=== PATIENT | male | born 1955 | race Caucasian/White ===

== ENCOUNTER 2017-11-24 08:33 | Outpatient (CLI) | payer MEDICARE | END 2017-11-24 08:34 | disposition home or self-care (01) | LOC: BICMRI 08:33 | PROVIDERS: ATTEND Physician Assistant Surgical | DX: M47.26 Other spondylosis with radiculopathy, lumbar region (principal); M51.16 Intervertebral disc disorders with radiculopathy, lumbar region; M48.061 Spinal stenosis, lumbar region without neurogenic claudication; M99.83 Other biomechanical lesions of lumbar region | CPT/HCPCS: 72110; 72148 ==

== ENCOUNTER 2017-12-20 11:32 | Outpatient (CLI) | payer MEDICARE ==
--- NOTE | 2017-12-20 12:06 | RAD ---
TWO VIEWS OF THE CHEST: COMPARISON: None. HISTORY: Preoperative radiograph. FINDINGS: Two views of the chest show a normal-size cardiomediastinal silhouette with atherosclerotic calcifica tions in the aorta. There is no evidence of consolidation, mass, or pleural effusion. Degenerative changes are seen in the spine. IMPRESSION: 1. No evidence of acute cardiopulmonary disease. 2. Atherosclerotic disease. POS: [facility]
== END 2017-12-20 11:33 | disposition home or self-care (01) ==
LOC: RAD-FRANK 11:32
PROVIDERS: ATTEND Internal Medicine
DX: Z01.818 Encounter for other preprocedural examination (principal); I70.0 Atherosclerosis of aorta
CPT/HCPCS: 71046

== ENCOUNTER 2018-12-19 11:28 | Inpatient (IN) | payer MEDICAID, MEDICARE ==
[2018-12-19 11:43] LABS: #Basophils 0.1 thou/uL (0.0-0.2); #Eosinphils 0.1 thou/uL (0.0-0.7); #Lymphocytes 1.5 thou/uL (1.20-3.40); #Monocytes 0.8 thou/uL (0.11-0.59); #Neutrophils 7.9 thou/uL (1.40-6.50); %Basophils 0.5 % (0.0-1.0); %Eosinophils 0.7 % (0.0-10.0); %Lymphocytes 14.4 % (21.0-51.0); %Monocytes 7.4 % (0.0-10.0); Hemoglobin 13.2 g/dL (14.0-18.0); Mean Corpuscular HGB CONC 33.7 g/dL (32.0-36.0); Mean Corpuscular Hemoglobin 28.9 pg (27.0-31.0); Mean Corpuscular Volume 85.6 fL (78.0-98.0); Platelet Count 278 thou/uL (130-400); RBC Distribution Width 13.2 % (11.5-14.5); Red Blood Cell (RBC) Count 4.57 mill/uL (4.70-6.10); White Blood Cell (WBC) Count 10.2 thou/uL (4.8-10.8)
--- NOTE | 2018-12-19 11:52 | CT ---
CT BRAIN WITHOUT CONTRAST: Date: 12/19/18 HISTORY: 62-year-old male with left-sided weakness and facial droop. FINDINGS: Comparison made with exam of 11/16/12. Changes of cortical atrophy, chronic small vessel ischemic disease, and old infarction in the left po sterior parietal lobe are again seen. There is loss of kim-white matter differentiation in the left temporal lobe. No hemorrhage, midline shift, or abnormal extra-axial fluid collections are seen. The ventricular size is appropriate and the basilar cisterns are patent. The bony calvarium is intact. IMPRESSION: Findings suspicious for acute nonhemorrhagic left temporal lobe infarction. Discussed over the telephone with ER physician, Dr. Slaughter, at 1136 hours. CODE CR. POS: [facility]
[2018-12-19 11:53] LABS: INR-International Normal Ratio 1.1; PTT 28.2 SEC (22.9-36.1); Prothrombin Time 14.3 SEC (12.0-14.7)
[2018-12-19 11:57] LABS: ALT (SGPT) 14 U/L (8-55); AST (SGOT) 12 U/L (5-34); Alkaline Phosphatase 90 U/L (40-150); Anion Gap 13 mmol/L (10-20); BUN (Urea Nitrogen) 32 mg/dL (8.4-25.7); Bilirubin, Total 1.1 mg/dL (0.2-1.2); CK (CPK) 37 U/L (30-200); Calc. Creatinine Clearance 0 mL/min (70-130); Calcium 9.1 mg/dL (7.8-10.44); Carbon Dioxide 28 mmol/L (23-31); Chloride 98 mmol/L (98-107); Estimated GFR-MDRD 30; Globulin 2.5 g/dL (2.4-3.5); Glucose 89 mg/dL (80-115); Potassium 3.9 mmol/L (3.5-5.1); Protein, Total 6.5 g/dL (5.8-8.1); Sodium 135 mmol/L (136-145)
--- NOTE | 2018-12-19 12:13 | CT ---
CT angiogram of head CT angiogram of the neck: CT perfusion of the brain TECHNIQUE: Axial CT imaging at 1.25 mm intervals from the vertex through the lung apices with IV cont rast using CT angiogram protocol. CT perfusion maps were also obtained following the injection of intravenous contrast media HISTORY: Left-sided weakness, facial droop FINDINGS: The imaged lung apices are unremarkable. There is atherosclerotic calcification of the aortic arch. The origin of the innominate artery, left common carotid artery, and left subclavian artery are paten t. There is partially calcified plaque at the origin of the innominate artery, left common carotid artery, left subclavian artery. There is mild stenosis at the origin of the left common carotid arter y. Mild stenosis is suspected at the origin of bilateral vertebral arteries. The right and left vertebral arteries are patent with no evidence for high-grade stenosis of either v ertebral artery. There is an area of moderate stenosis involving the left vertebral artery on axial image 139. An additional area of stenosis of the left vertebral artery noted on image 125. On the basis of NASCET criteria there is no hemodynamically significant stenosis involving the left c ommon carotid artery. On the basis of partially calcified plaque there is stenosis at the origin of the left internal carotid artery estimated in 50% range. On the basis of partially calcified plaque there is stenosis at the origin of the right internal pimentel tid artery. The degree of atherosclerotic calcification limits detailed assessment for the degree of stenosis but this is felt to be a high-grade stenosis of at least 80-90%. The internal carotid art karl on the right distal to this focal area of proximal stenosis is slightly hypoplastic. The retroantral fat and the parapharyngeal fat appears clear bilaterally. The parotid and submandibul ar glands appear unremarkable. There is a hypodense nodule within the right lobe of the thyroid gland measuring approximately 6 mm. No lymphadenopathy is seen within the neck. Limited assessment of the aerodigestive tract demonstrate s no concerning lesion. There is a focal area of prominent/moderate stenosis involving the midportion of the basilar artery o n axial image 2:15. The posterior cerebral artery demonstrates a severe area of proximal stenosis on the left, best seen on axial image 227. There is atherosclerotic calcification of bilateral cavernous carotid arteries. The M1 segments appear patent bilaterally. There is a paucity of arterial branches within the sylvian fissure on the left. It is difficult to pinpoint a focal arterial clot but there is a diminutive M2 branch on the left, best seen on axial image 229, suspicious for a probable proximal M2 clot on th e left. The bifurcation of the internal carotid artery appears unremarkable bilaterally. The A1 segment appea rs hypoplastic on the right. Distal SEGUN branches appear intact. The MCA bifurcation and distal MCA branches on the right appear grossly unremarkable. CT perfusion maps: CT perfusion maps demonstrate an area of completed infarction involving the anteri or inferior lateral aspect of the left temporal lobe. Posterior to this is a area of temporal lobe ischemia as there is increased mean transit time in this region but blood volume is normal. This is c onsistent with a significant penumbra in the area of left MCA ischemia. Review of the osseous structures demonstrate no acute findings IMPRESSION: Completed infarction in the left temporal lobe with an adjacent area of the left temporal lobe ischemia (significant penumbra present). There is a probable area of intra-arterial thrombus involving a proximal left M2 branch accounting for these perfusion abnormalities. Evidence of cytotox ic edema is seen within the left temporal lobe consistent with the area of ischemia/infarct mentioned above. There is hemodynamically significant stenosis at the origin of the right internal carotid artery, dif ficult to quantify secondary to calcification. This area of stenosis at the proximal right ICA appears critical. Results were discussed with Dr. Slaughter at 12:05 PM 12/19/2018.
[2018-12-19] MEDS ORDERED: Morphine 4 MG/ML VIAL ONE (15:50)
[2018-12-19] MEDS ORDERED: Sodium Chloride 0.9% 1,000 ML IV SCH (16:30)
[2018-12-19] MEDS ORDERED: Labetalol HCl 100 MG/20 ML VIAL SLOW IVP PRN (17:16)
[2018-12-19] MEDS ORDERED: hydrALAZINE 20 MG/ML VIAL SLOW IVP PRN (17:16)
[2018-12-19] MEDS ORDERED: Diazepam 5 MG TAB PO PRN (17:22)
[2018-12-19] MEDS ORDERED: Diazepam 5 MG TAB PO SCH (17:30)
[2018-12-19] MEDS ORDERED: Thiamine HCl 200 MG/2 ML VIAL IM SCH (17:30)
--- NOTE | 2018-12-19 18:07 | CON ---
DATE OF CONSULTATION: 12/19/2018 SERVICE: Pulmonary Medicine. REASON FOR CONSULT: ICU patient. HISTORY OF PRESENT ILLNESS: The patient is a 62-year-old white male, who had an abrupt onset of inability to speak correctly. He was able to get some words out , but they were completely nonsensical and put together in a way that he was not able to convey any thoughts. He was last seen early this morning. He presented to the emergency department, where a CT of the head suggested a large left temporal acute stroke. He underwent a CTA of the head and neck, and also SPECT studies. This confirmed a flow void in the left temporal region. He got a dose of tPA. Interventional Radiology suggested no additional interventions were required. He actually got a lot of his words back. That being said, he is still kind of confused about who he is, what the situation is, and where he is. He does speak appropriately now and we can understand him. His family is suggesting that in no way is he back to his usual state. PAST MEDICAL HISTORY: 1. Hypertension. 2. History of CVA. 3. Benign prostatic hyperplasia. 4. Gastroesophageal reflux disease. 5. Major depressive disorder. 6. COPD. 7. Gout. 8. Osteoporosis. PAST SURGICAL HISTORY: 1. Left hip replacement x2. 2. Right knee replacement. SOCIAL HISTORY: He lives alone. He was recently visiting with a friend, who left yesterday. He has a greater than 60 pack-year history of smoking. He previously drank 5 alcoholic drinks on a daily basis. He also denied any illicit drugs. 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 FAMILY HISTORY: Noncontributory. ALLERGIES: PENICILLIN, CODEINE. MEDICATIONS: List of his inpatient medications was reviewed. No specific updates were made. REVEIW OF SYSTEMS: General, Head, Ears, Eyes, Nose, Throat, Cardiovascular, Respiratory, GI, , Musculoskeletal, Neurologic, and Skin are negative except as mentioned in the HPI. PHYSICAL EXAMINATION: VITAL SIGNS: Afebrile, pulse 70, blood pressure 160/85, respirations 19, saturation 100% on room air. GENERAL: The patient is awake and alert, in no apparent distress. LUNGS: Very good air entry. No prolonged expiratory phase or wheezing present. HEART: Normal rate and regular. ABDOMEN: Soft, nontender, nondistended. Bowel sounds are positive. MUSCULOSKELETAL: No cyanosis or clubbing. No pitting in the bilateral lower extremities. NEUROLOGIC: Truthfully, he is essentially nonfocal. He demonstrates good strength, which is symmetric. Cranial nerves 2 through 12 are intact. Cerebellar function seems to be intact as well. LABORATORY DATA: WBC 10.2, hemoglobin 13.2, platelets 278,000. INR 1.1. Creatinine 2.22. Basic metabolic profile and liver function studies are otherwise unremarkable. Troponin is below the assay limit, glucose is normal. IMAGING STUDIES: 1. CTA of the head and neck demonstrates abnormal perfusion in left temporal region. He also has significant stenosis of the right ICA. 2. CT of the brain demonstrates an area of the left temporal region with ischemia. ASSESSMENT: 1. Acute cerebrovascular accident of the left temporal region, status post tissue plasminogen activator. 2. Carotid arterial disease of the right internal carotid artery. 3. Chronic obstructive pulmonary disease. 4. Hypertension. 5. Tobacco and alcohol abuse. DISCUSSION AND PLAN: We will watch the patient's ASE scores. If he starts having withdrawal features, some Ativan will be provided. We will watch him in the ICU very closely over the next 24 hours to make certain he does not have any neurologic decompensation. If he does, stat CT of the brain will be performed. Repeat CT of the head will be performed tomorrow morning. Pulmonary/Critical Care will continue to follow along in this location. 70 minutes have been devoted to this patient in various activities. I personally reviewed all imaging studies and laboratory data noted within this document. For fifty percent of this time, I was interacting with the patient at the bedside or coordinating care with the care team. For the remainder of the time I was immediately available to the patient in the hospital unit. Job ID: [id number] [facility]
[2018-12-19 18:44] LABS: Amphetamine Not Detected (NotDetected); Barbiturates Screen Not Detected (NotDetected); Benzodiazepine Screen Detected (NotDetected); Cocaine Metabolite Screen Not Detected (NotDetected); Medtox Control Line Valid? VALID (VALID); Medtox Reader # READER 1; Methadone Not Detected (NotDetected); Methamphetamine Not Detected (NotDetected); Opiate Screen Detected (NotDetected); Oxycodone Screen Not Detected (NotDetected); Phencyclidine (PCP) Not Detected (NotDetected); THC/Cannabinoid Screen Not Detected (NotDetected); Tricyclic Screen Not Detected (NotDetected)
[2018-12-19] MEDS ORDERED: Dextrose 5 %-0.45 % NaCl 1,000 ML IV SCH (19:15)
[2018-12-19] MEDS: Losartan/Hydrochlorothiazide 100 mg/25 mg Tablet PO SCH (20:29)
[2018-12-19] MEDS: Gabapentin 300 MG CAP PO SCH (20:30)
[2018-12-19] MEDS: Morphine 2 MG/ML SYRINGE SLOW IVP PRN (20:30)
--- NOTE | 2018-12-19 21:34 | CON ---
DATE OF CONSULTATION: 12/19/2018 CONSULTING PHYSICIAN: Monroe Snider MD IMPRESSION: 1. Acute left temporal stroke with receptive aphasia. 2. Extensive chronic white matter disease and prior silent infarction in the left posterior circulation area. PLAN: 1. Repeat CT tomorrow. 2. Start antiplatelet therapy and a statin after the 24-hour window has passed. HISTORY OF PRESENT ILLNESS: Mr. Augustine is a 62-year-old man with a past history of hypertension. He presented with change in mental status and that he seemed to be talking inappropriately. He came in and had a CT of the brain, which showed some acute area of hypointensity in the left temporal region. His CT angiogram shows right ICA stenosis of around 80% and left ICA stenosis about 50%. He is in a normal sinus rhythm. His lab work was all unremarkable. He was administered tPA and transferred to the ICU. He is unable to give me any history due to his difficulty with comprehension. PAST MEDICAL HISTORY: Hypertension. ALLERGIES: NONE REPORTED. SOCIAL HISTORY: Unknown. FAMILY HISTORY: Unknown. REVIEW OF SYSTEMS: Ten-system review of systems not obtainable. PHYSICAL EXAMINATION: GENERAL: He is a well-nourished, middle-aged man, sitting up in bed, in no acute distress. VITAL SIGNS: Have been stable. He is in sinus rhythm. HEENT: Pupils are equal. Conjunctivae clear. Oropharynx clear. NECK: Supple. No lymphadenopathy. EXTREMITIES: No cyanosis, clubbing, or edema. NEUROLOGIC: He was alert and attentive. His speech was clear, but he frequently said I do not know which you want. He had difficulty following commands unless there are verbal cues. Cranial nerves appear to be intact without any facial droop. He had antigravity strength on the right side, but his fine motor control was questionable. No abnormal movements were seen. SUMMARY: A middle-aged man with extensive small vessel disease and carotid disease with a secondary stroke in the left temporal lobe. I agree with management. We will follow up on his echocardiogram. Job ID: [id number]
[2018-12-20] MEDS: Morphine 2 MG/ML SYRINGE SLOW IVP PRN ×5 (01:18→20:25)
[2018-12-20] MEDS ORDERED: Dextrose 5 % And 0.9 % NaCl 1,000 ML IV SCH (02:15)
[2018-12-20] MEDS ORDERED: Diazepam 5 MG TAB PO PRN (04:00)
[2018-12-20] MEDS: Dextrose 5 % And 0.9 % NaCl 1,000 ML IV SCH ×2 (05:07→20:26)
[2018-12-20 05:42] LABS: #Eosinphils 0.1 thou/uL (0.0-0.7); #Lymphocytes 1.8 thou/uL (1.20-3.40); #Monocytes 0.7 thou/uL (0.11-0.59); #Neutrophils 5.2 thou/uL (1.40-6.50); %Basophils 0.4 % (0.0-1.0); %Eosinophils 0.8 % (0.0-10.0); %Lymphocytes 22.8 % (21.0-51.0); %Monocytes 8.8 % (0.0-10.0); %Neutrophils 67.2 % (42.0-75.0); Hemoglobin 13.4 g/dL (14.0-18.0); Mean Corpuscular HGB CONC 32.9 g/dL (32.0-36.0); Mean Corpuscular Hemoglobin 28.4 pg (27.0-31.0); Mean Corpuscular Volume 86.4 fL (78.0-98.0); Mean Platelet Volume 8.2 fL (7.4-10.4); Platelet Count 289 thou/uL (130-400); RBC Distribution Width 13.2 % (11.5-14.5); Red Blood Cell (RBC) Count 4.71 mill/uL (4.70-6.10); White Blood Cell (WBC) Count 7.7 thou/uL (4.8-10.8)
[2018-12-20 06:06] LABS: Anion Gap 13 mmol/L (10-20); BUN (Urea Nitrogen) 18 mg/dL (8.4-25.7); Calc. Creatinine Clearance 59 mL/min (70-130); Calcium 8.9 mg/dL (7.8-10.44); Carbon Dioxide 27 mmol/L (23-31); Chloride 95 mmol/L (98-107); Estimated GFR-MDRD 55; Glucose 99 mg/dL (80-115); Magnesium 1.4 mg/dL (1.6-2.6); Potassium 3.2 mmol/L (3.5-5.1); Sodium 132 mmol/L (136-145)
[2018-12-20 06:08] LABS: ALT (SGPT) 12 U/L (8-55); AST (SGOT) 11 U/L (5-34); Alkaline Phosphatase 88 U/L (40-150); Anion Gap 13 mmol/L (10-20); BUN (Urea Nitrogen) 18 mg/dL (8.4-25.7); Bilirubin, Total 0.9 mg/dL (0.2-1.2); Calc. Creatinine Clearance 58 mL/min (70-130); Calcium 8.9 mg/dL (7.8-10.44); Carbon Dioxide 27 mmol/L (23-31); Chloride 95 mmol/L (98-107); Estimated GFR-MDRD 54; Glucose 102 mg/dL (80-115); Potassium 3.2 mmol/L (3.5-5.1); Sodium 132 mmol/L (136-145)
--- NOTE | 2018-12-20 07:32 | HP ---
CHIEF COMPLAINT: Evaluation for confusion. HISTORY OF PRESENT ILLNESS: Mr. Augustine is a 62-year-old male with past medical history of hypertension, hyperlipidemia, was brought in because of change in mental status. The patient is confused, unable to give any proper history. According to the ER physician note, the patient was found to have altered mental status by the family, so EMS was called. EMS found the patient with left-sided facial droop and confusion. He was given IV fluids on the way to the hospital. According to the EMS, the family called him around 10:45 and he was confused and they called the EMS. The patient was evaluated in the ER, found to have acute left temporal ischemic CVA. The patient received tPA and is being admitted to CCU for close monitoring. The patient was treated for pneumonia and sepsis about a few weeks ago at [facility]. PAST MEDICAL HISTORY: 1. Hypertension. 2. Hyperlipidemia. PAST SURGICAL HISTORY: Bilateral hip replacement, knee replacement, as well as back surgery. ALLERGIES: CODEINE, SULFATE, AND PENICILLIN. FAMILY HISTORY: Nothing contributory. SOCIAL HISTORY: The patient lives alone. Used to smoke heavily in the past. Quit smoking a few years ago. Used to drink alcohol also heavily before, but not taking now. CURRENT MEDICATIONS: The patient is on 1. Metoprolol 100 mg b.i.d. 2. Calcium and vitamin D b.i.d. 3. Losartan and hydrochlorothiazide 100/25 mg daily 4. Protonix 40 mg daily. 5. Temazepam 15 mg at bedtime. 6. Allopurinol 300 mg daily. 7. Paxil 20 mg daily. 8. Gabapentin 300 mg b.i.d. 9. Fosamax 70 mg once a week. 10. Flomax 0.4 mg daily. 11. Magnesium 400 mg daily. 12. Combivent inhaler b.i.d. REVIEW OF SYSTEMS: CARDIOVASCULAR: No chest pain. No shortness of breath. RESPIRATORY: No fever or cough. GASTROINTESTINAL: No nausea, vomiting. No abdominal pain. CENTRAL NERVOUS SYSTEM: No headache. No dizziness. PHYSICAL EXAMINATION: GENERAL: The patient is awake and alert, but not oriented at all. VITAL SIGNS: Temperature 98, pulse 73, respirations 20, blood pressure 140/70. HEENT: Head is normal atraumatic. Pupils are equal and reactive. Nasopharynx is pale and dry. NECK: Supple. No JVD. LUNGS: Bilateral air entry. No rales, no rhonchi. HEART: S1 and S2, regular. ABDOMEN: Soft. No distention. No tenderness. Normal bowel sounds present. RECTAL: Deferred CENTRAL NERVOUS SYSTEM: The patient is alert, awake, but not oriented. Motor system, power 4/5 in all extremities. Deep tendon reflexes 2+. Plantars downgoing. There is left facial droop. The patient has difficulty understanding. LABORATORY DATA: CBC shows WBC 10, hemoglobin 13, hematocrit 39, platelets 278. Metabolic panel; sodium 135, potassium 3.9, chloride 98, CO2 28, blood urea nitrogen 32, creatinine 2.2, glucose 89. Prothrombin time 14, INR 1.1. CT scan of the brain showed possible stroke in the left temporal area. CTA of the neck and head showed infarct in the left temporal area, ischemic. EKG shows normal sinus rhythm, no acute ST-T changes seen. Chest x-ray not done. ASSESSMENT: 1. Acute left temporal cerebrovascular accident with encephalopathy, acute. The patient possibly has receptive aphasia. 2. Hypertension. 3. Hyperlipidemia. 4. Acute kidney injury . 5. History of back pain. PLAN: 1. Vital signs q.4 hours. 2. Activity as tolerated. 3. Allergies, penicillin and codeine. 4. IV fluids, half normal at 60 mL/h. 5. Stroke protocol. 6. Neurology consult. 7. Continue home medications. 8. Diet, regular. Job ID: [id number] [facility]
[2018-12-20] MEDS ORDERED: Magnesium Sulfate 4 GM in Sodium Chloride 0.9% 250 ML 250 ML IVPB SCH (08:45)
[2018-12-20] MEDS ORDERED: Magnesium Oxide 400 MG TAB PO SCH (09:00)
[2018-12-20] MEDS: Tamsulosin HCl 0.4 MG CAP PO SCH (09:14)
[2018-12-20] MEDS: PARoxetine 20 MG TAB PO SCH (09:14)
[2018-12-20] MEDS: Gabapentin 300 MG CAP PO SCH ×2 (09:14→20:24)
--- NOTE | 2018-12-20 12:39 | MRI ---
EXAM: MRI of the brain without contrast HISTORY: Left MCA distribution infarction status post TPA COMPARISON: MRI brain 11/17/[address] brain 12/19/2018 TECHNIQUE: Multiplanar multisequence MR images were obtained of the brain without IV contrast. FINDINGS: There is high FLAIR signal and restricted diffusion in the left temporal lobe consistent with an acut e left MCA distribution infarction. Scattered foci of high T2/FLAIR signal in the subcortical and periventricular white matter are likely secondary to small vessel ischemic disease. No hydronephrosis. No extra-axial fluid collection or intracranial hemorrhage. The expected flow voids are present at the skull base with less prominent left MCA vessels.. Corpus callosum, pituitary, and craniocervical junction are within normal limits. The calvarium and overlying soft tissues are unremarkable. The paranasal sinuses and mastoid air cells are well aerated. IMPRESSION: Acute left MCA distribution infarction.
[2018-12-20] MEDS: Multivitamin W/ Minerals 1 TAB PO SCH (14:26)
[2018-12-20] MEDS: Allopurinol 300 MG TAB PO SCH (14:26)
[2018-12-20] MEDS: Calcium Carbonate + Vit D 1 TAB PO SCH (14:26)
[2018-12-20] MEDS: Thiamine 100 MG TAB PO SCH (14:26)
[2018-12-20] MEDS: Folic Acid 1 MG TAB PO SCH (14:26)
[2018-12-20] MEDS: Magnesium Oxide 400 MG TAB PO SCH (14:26)
[2018-12-20] MEDS ORDERED: Aspirin 81 mg Enteric Coated Tablet PO SCH (16:15)
--- NOTE | 2018-12-20 16:33 | PRG ---
DATE OF SERVICE: 12/20/2018 SERVICE: Pulmonary Medicine. INTERVAL HISTORY: The patient is doing fine from a neurologic standpoint. He is about stable compared to yesterday. He has regained a lot of function, but he seemed to have plateaued. At the very least, things do not seem to be getting any worse. He passed bedside swallow evaluation. Speech Pathology consultation is pending to make certain we have the textures correct. PHYSICAL EXAMINATION: VITAL SIGNS: Afebrile, pulse 71, blood pressure 140/71, respirations 18, saturation 96%, currently on room air. GENERAL: The patient is awake and alert, in no apparent distress. LUNGS: Very good air entry with no prolonged expiratory phase or wheezing present. HEART: Normal rate and regular. ABDOMEN: Soft, nontender, nondistended. Bowel sounds are positive. MUSCULOSKELETAL: No cyanosis or clubbing. No pitting in the bilateral lower extremities. NEUROLOGIC: He has some Wernicke's aphasia. LABORATORY DATA: WBC 7.7, hemoglobin 13.4 and stable, platelets 289,000. INR 1.1. Potassium 3.2. Basic metabolic profile is otherwise unremarkable. Creatinine 1.34. Urine drug screen is positive for opiates and benzodiazepines. IMAGING DATA: 1. Echocardiogram demonstrates normal ejection fraction. No atrial septal defect or PFO. No intracardiac masses or vegetations are identified. Diastolic dysfunction is noted. 2. MRI of the brain demonstrates acute left MCA distribution infarction without an obvious underlying lesion. There is no obvious blood present. ASSESSMENT: 1. Acute cerebrovascular accident, status post tPA. 2. Carotid arterial disease in the right. 3. Chronic obstructive pulmonary disease without current exacerbation. 4. Tobacco and alcohol abuse. DISCUSSION AND PLAN: The patient can be transitioned out of the ICU to the stroke unit. If there is any significant neurologic deterioration, an immediate CT of the head will be performed. At this point, he has no further requirements for inpatient Pulmonary or Critical Care opinion, and I will sign off. Please call with additional questions or concerns through time. Job ID: [id number] [facility]
[2018-12-20] MEDS: Losartan/Hydrochlorothiazide 100 mg/25 mg Tablet PO SCH (20:24)
[2018-12-21 05:12] VITALS: BMI 27.7
[2018-12-21 06:22] LABS: #Eosinphils 0.2 thou/uL (0.0-0.7); #Lymphocytes 1.7 thou/uL (1.20-3.40); #Monocytes 0.6 thou/uL (0.11-0.59); #Neutrophils 5.8 thou/uL (1.40-6.50); %Basophils 0.5 % (0.0-1.0); %Eosinophils 2.6 % (0.0-10.0); %Lymphocytes 20.6 % (21.0-51.0); %Monocytes 7.5 % (0.0-10.0); %Neutrophils 68.8 % (42.0-75.0); Hemoglobin 13.8 g/dL (14.0-18.0); Mean Corpuscular Hemoglobin 28.1 pg (27.0-31.0); Mean Corpuscular Volume 87.9 fL (78.0-98.0); Mean Platelet Volume 7.8 fL (7.4-10.4); Platelet Count 319 thou/uL (130-400); RBC Distribution Width 13.2 % (11.5-14.5); Red Blood Cell (RBC) Count 4.92 mill/uL (4.70-6.10); White Blood Cell (WBC) Count 8.5 thou/uL (4.8-10.8)
[2018-12-21 06:30] LABS: Anion Gap 15 mmol/L (10-20); BUN (Urea Nitrogen) 11 mg/dL (8.4-25.7); Calc. Creatinine Clearance 72 mL/min (70-130); Calcium 9.8 mg/dL (7.8-10.44); Carbon Dioxide 26 mmol/L (23-31); Chloride 96 mmol/L (98-107); Estimated GFR-MDRD 64; Glucose 98 mg/dL (80-115); Potassium 4.2 mmol/L (3.5-5.1); Sodium 133 mmol/L (136-145)
[2018-12-21] MEDS: Morphine 2 MG/ML SYRINGE SLOW IVP PRN (08:46)
[2018-12-21] MEDS: Tamsulosin HCl 0.4 MG CAP PO SCH (08:48)
[2018-12-21] MEDS: PARoxetine 20 MG TAB PO SCH (08:48)
[2018-12-21] MEDS: Calcium Carbonate + Vit D 1 TAB PO SCH (08:48)
[2018-12-21] MEDS: Magnesium Oxide 400 MG TAB PO SCH (08:48)
[2018-12-21] MEDS: Allopurinol 300 MG TAB PO SCH (08:48)
[2018-12-21] MEDS: Gabapentin 300 MG CAP PO SCH ×2 (08:49→19:59)
[2018-12-21] MEDS: Multivitamin W/ Minerals 1 TAB PO SCH (08:49)
[2018-12-21] MEDS: Folic Acid 1 MG TAB PO SCH (08:49)
[2018-12-21] MEDS: Aspirin 81 mg Enteric Coated Tablet PO SCH (08:49)
[2018-12-21] MEDS: Thiamine 100 MG TAB PO SCH (08:49)
[2018-12-21] MEDS: Dextrose 5 % And 0.9 % NaCl 1,000 ML IV SCH (11:48)
--- NOTE | 2018-12-21 16:57 | PRG ---
DATE OF SERVICE: 12/21/2018 SERVICE: Pulmonary Medicine. INTERVAL HISTORY: The patient is doing really well from respiratory standpoint. Mentation gilman, he is doing a little bit better. Otherwise, there are no significant overnight events. PHYSICAL EXAMINATION: VITAL SIGNS: Afebrile, pulse 76, blood pressure 127/83, respirations 20, and saturation 95% on room air. GENERAL: The patient is awake and alert, in no apparent distress. LUNGS: Very good air entry. No prolonged expiratory phase or wheezing. HEART: Normal rate. Regular. ABDOMEN: Soft, nontender, and nondistended. Bowel sounds are positive. MUSCULOSKELETAL: No cyanosis or clubbing. No pitting in the bilateral lower extremities. LABORATORY DATA: WBC 8.5, hemoglobin 13.8, and platelets 319,000. Sodium 133. Basic metabolic profile is otherwise unremarkable. Creatinine is improved to 1.15. ASSESSMENT: 1. Cerebrovascular accident of the left temporal region, status post tPA. 2. Carotid arterial disease on the right. 3. Chronic obstructive pulmonary disease without current exacerbation. 4. Tobacco and alcohol abuse. DISCUSSION AND PLAN: The patient is stable for transition out of the ICU. When he leaves the ICU, he will have no further requirements for inpatient Pulmonary or Critical Care opinion. I believe him to be stable for discharge. He is tolerating p.o., so I will get rid of his IV fluids. When he leaves the ICU, I will sign off. Call with questions or concerns. Job ID: [id number] [facility]
[2018-12-21] MEDS ORDERED: Acetaminophen 325 MG TAB PO PRN (19:20)
[2018-12-21] MEDS: Losartan/Hydrochlorothiazide 100 mg/25 mg Tablet PO SCH (19:59)
--- NOTE | 2018-12-22 02:18 | CON ---
DATE OF CONSULTATION: HISTORY OF PRESENT ILLNESS: This is a 63-year-old gentleman who presented with a left middle cerebral artery infarction manifested by speech impairment with perhaps receptive and expressive aphasia based on examination. He has no obvious upper extremity motor deficits. He has risk factors of smoking, hypertension. During admission to the hospital, he underwent a brain MRI showing left temporal lobe infarction with evidence of small vessel disease as well. CT angio of the neck, which I have reviewed shows a complex ulceration in the left proximal internal carotid artery with about a 50% stenosis and a right internal carotid artery stenosis of about 80% or 90%. Additionally, he has some [id number] proximal common carotid artery disease on the left. SOCIAL HISTORY: He lives alone and does have a history of alcohol abuse but none currently. He does air conditioner installations. ALLERGIES: INCLUDE CODEINE AND PENICILLIN. MEDICATIONS: His medicines prior to admission included: 1. Metoprolol 100 b.i.d. 2. Losartan/HCTZ 100/25 a day. 3. Protonix 40 a day. 4. Allopurinol 300 a day. 5. Paxil 20 a day. 6. Temazepam 50 at bedtime. 7. Gabapentin 300 b.i.d. 8. Flomax 0.4 daily. 9. Magnesium 400 a day. 10. Combivent inhaler. 11. Fosamax. PHYSICAL EXAMINATION: GENERAL: On examination, he is alert, cooperative gentleman, but basically answers all questions with yes and I don't know. NECK: He is unshaven. No carotid bruits. LUNGS: Increased chest AP diameter. No wheezes. HEART: Exam distant heart sounds. No murmurs. ABDOMEN: Full, nontender. Unable to examine for organomegaly due to his size. EXTREMITIES: He has palpable posterior tibial pulses bilaterally. Overall motor function seems intact, although there may have been some discoordination with his left hand. ASSESSMENT AND PLAN: At this time, the patient has suffered a left middle cerebral artery infarct with significant expressive and receptive aphasia, probably more expressive than receptive based on examination today. He probably needs bilateral carotid endarterectomy if he recover significantly, and other than aspirin therapy, have no additional recommendations at this time, but will need to follow up with me in about 6 weeks. Job ID: [id number]
[2018-12-22] MEDS: Tamsulosin HCl 0.4 MG CAP PO SCH (09:04)
[2018-12-22] MEDS: Magnesium Oxide 400 MG TAB PO SCH (09:04)
[2018-12-22] MEDS: PARoxetine 20 MG TAB PO SCH (09:04)
[2018-12-22] MEDS: Folic Acid 1 MG TAB PO SCH (09:04)
[2018-12-22] MEDS: Allopurinol 300 MG TAB PO SCH (09:04)
[2018-12-22] MEDS: Multivitamin W/ Minerals 1 TAB PO SCH (09:04)
[2018-12-22] MEDS: Gabapentin 300 MG CAP PO SCH (09:04)
[2018-12-22] MEDS: Acetaminophen 325 MG TAB PO PRN ×2 (09:04→18:11)
[2018-12-22] MEDS: Calcium Carbonate + Vit D 1 TAB PO SCH (09:04)
[2018-12-22] MEDS: Aspirin 81 mg Enteric Coated Tablet PO SCH (09:04)
[2018-12-22] MEDS: Thiamine 100 MG TAB PO SCH (09:04)
[2018-12-22 15:56] VITALS: BP 110/61; TEMP 97.5
--- NOTE | 2018-12-24 01:28 | EKG ---
Test Reason : STROKE Blood Pressure : / mmHG Vent. Rate : 077 BPM Atrial Rate : 077 BPM P-R Int : 132 ms QRS Dur : 072 ms QT Int : 386 ms P-R-T Axes : 055 002 038 degrees QTc Int : 436 ms Sinus rhythm with Premature atrial complexes Otherwise normal ECG Confirmed by MAKI DENISE ([id number]), editor map SMILEY HERRERA ([id number]) on 12/24/2018 1:27:12 AM Referred By: SHARER Confirmed By:MAKI DENISE
== END 2018-12-22 19:05 | DRG 62 ==
LOC: ERS 11:28 → CCU 12:18 → 2SE 12-21 14:01
PROVIDERS: ADMIT Internal Medicine; ATTEND Internal Medicine
DX: I63.512 Cerebral infarction due to unspecified occlusion or stenosis of left middle cerebral artery (principal); N17.9 Acute kidney failure, unspecified; G93.49 Other encephalopathy; R47.01 Aphasia; R40.2362 Coma scale, best motor response, obeys commands, at arrival to emergency department; R40.2142 Coma scale, eyes open, spontaneous, at arrival to emergency department; R40.2242 Coma scale, best verbal response, confused conversation, at arrival to emergency department; R29.708 NIHSS score 8; N40.0 Benign prostatic hyperplasia without lower urinary tract symptoms; R29.810 Facial weakness; K21.9 Gastro-esophageal reflux disease without esophagitis; F32.9 Major depressive disorder, single episode, unspecified; J44.9 Chronic obstructive pulmonary disease, unspecified; M10.9 Gout, unspecified; M81.0 Age-related osteoporosis without current pathological fracture; I65.21 Occlusion and stenosis of right carotid artery; I10 Essential (primary) hypertension; Z96.651 Presence of right artificial knee joint; Z60.2 Problems related to living alone; Z96.641 Presence of right artificial hip joint; F10.10 Alcohol abuse, uncomplicated; Z86.73 Personal history of transient ischemic attack (TIA), and cerebral infarction without residual deficits; Z87.891 Personal history of nicotine dependence; Z88.2 Allergy status to sulfonamides; Z88.0 Allergy status to penicillin; Z79.899 Other long term (current) drug therapy
CPT/HCPCS: 0042T; 36415; 36416; 70450; 70496; 70498; 70551; 80048; 80053; 80306; 82550; 83735; 84100; 84484; 85025; 85610; 85730; 93005; 93306; 94640; 96365; J2270; J2997; J3475; J7050; J7620

== ENCOUNTER 2019-01-23 06:18 | Inpatient (IN) | payer MEDICARE ==
[2019-01-23] MEDS ORDERED: Heparin 5,000 UNITS/ML VIAL ONE (06:29)
[2019-01-23] MEDS ORDERED: Protamine Sulfate 50 MG/5 ML VIAL ONE (06:29)
[2019-01-23 06:55] LABS: Hemoglobin 13.1 g/dL (14.0-18.0); Mean Corpuscular HGB CONC 32.5 g/dL (32.0-36.0); Mean Corpuscular Hemoglobin 28.8 pg (27.0-31.0); Mean Corpuscular Volume 88.7 fL (78.0-98.0); Platelet Count 188 thou/uL (130-400); RBC Distribution Width 14.7 % (11.5-14.5); Red Blood Cell (RBC) Count 4.54 mill/uL (4.70-6.10); White Blood Cell (WBC) Count 8.3 thou/uL (4.8-10.8)
[2019-01-23] MEDS ORDERED: Midazolam HCl 2 mg/2 ml Vial ONE (06:55)
[2019-01-23] MEDS ORDERED: Fentanyl 100 MCG/2 ML VIAL ONE ×2 (06:55→07:21)
[2019-01-23 06:56] LABS: #Eosinphils 0.8 thou/uL (0.0-0.7); #Lymphocytes 2.1 thou/uL (1.20-3.40); #Monocytes 0.5 thou/uL (0.11-0.59); #Neutrophils 4.8 thou/uL (1.40-6.50); %Basophils 0.5 % (0.0-1.0); %Eosinophils 9.2 % (0.0-10.0); %Lymphocytes 25.7 % (21.0-51.0); %Monocytes 6.3 % (0.0-10.0); %Neutrophils 58.3 % (42.0-75.0); Mean Platelet Volume 8.9 fL (7.4-10.4)
[2019-01-23] MEDS ORDERED: Levofloxacin 500 mg/D5W 100 ml Premix Bag ONE (07:05)
[2019-01-23] MEDS ORDERED: Clindamycin/D5W 900 mg/50 ml Premix Bag ONE (07:05)
[2019-01-23 07:16] LABS: Anion Gap 11 mmol/L (10-20); BUN (Urea Nitrogen) 9 mg/dL (8.4-25.7); Calc. Creatinine Clearance 65 mL/min (70-130); Calcium 9.3 mg/dL (7.8-10.44); Carbon Dioxide 29 mmol/L (23-31); Chloride 103 mmol/L (98-107); Estimated GFR-MDRD 63; Glucose 77 mg/dL (80-115); Potassium 3.7 mmol/L (3.5-5.1); Sodium 139 mmol/L (136-145)
[2019-01-23] MEDS ORDERED: Bupivacaine HCl 0.5%/Epinephrine 1:200,000/PF 30 ml Vial ONE (08:15)
[2019-01-23] MEDS ORDERED: hydrALAZINE 20 MG/ML VIAL ONE (09:30)
[2019-01-23] MEDS ORDERED: Sodium Chloride 0.9% 1,000 ML IV SCH (10:31)
[2019-01-23] MEDS ORDERED: hydrALAZINE 20 MG/ML VIAL SLOW IVP PRN (10:31)
[2019-01-23] MEDS ORDERED: Nitroglycerin 50 MG/250 ML BOT 250 ML IVPB PRN (10:31)
[2019-01-23] MEDS ORDERED: DOPamine 400 MG/D5W 250 ML 250 ML IVPB PRN (10:31)
[2019-01-23] MEDS ORDERED: Fentanyl 100 MCG/2 ML VIAL SLOW IVP PRN (10:31)
[2019-01-23] MEDS ORDERED: PROPOFOL 200 MG/20 ML VIAL ONE (11:07)
[2019-01-23] MEDS ORDERED: Ondansetron PF 4 MG/2 ML Vial ONE (11:07)
[2019-01-23] MEDS ORDERED: Rocuronium Bromide 10 MG/ML (10ML VIAL) ONE (11:07)
[2019-01-23] MEDS ORDERED: PHENYLEPHRINE-NS 100 MCG/ML 10 ML SYRINGE ONE (11:07)
[2019-01-23] MEDS ORDERED: Heparin 10,000 UNITS/ 10 ML VIAL ONE (11:07)
[2019-01-23] MEDS ORDERED: Glycopyrrolate 0.2 MG/ML 5 ML SYRINGE ONE (11:07)
[2019-01-23] MEDS: Clindamycin/D5W 900 MG in Premix Bag 1 BAG IVPB SCH ×3 (11:14→23:22)
[2019-01-23 11:27] VITALS: BMI 29.6
[2019-01-23] MEDS: Ondansetron PF 4 MG/2 ML Vial IVP PRN (12:30)
[2019-01-23] MEDS: traMADol HCl 50 MG TAB PO PRN ×2 (14:03→19:47)
[2019-01-23] MEDS: Acetaminophen 325 MG TAB PO PRN (14:04)
[2019-01-23] MEDS ORDERED: Atorvastatin Calcium 20 MG TAB PO SCH (21:00)
[2019-01-24] MEDS: Acetaminophen 325 MG TAB PO PRN ×2 (00:19→08:39)
[2019-01-24] MEDS: traMADol HCl 50 MG TAB PO PRN (04:23)
[2019-01-24] MEDS: Ondansetron PF 4 MG/2 ML Vial IVP PRN ×2 (04:23→11:11)
[2019-01-24] MEDS: Clindamycin/D5W 900 MG in Premix Bag 1 BAG IVPB SCH (06:12)
[2019-01-24] MEDS ORDERED: Potassium Chloride 20 MEQ TAB PO SCH (06:30)
[2019-01-24] MEDS ORDERED: Furosemide 40 MG TAB PO SCH (06:30)
[2019-01-24] MEDS ORDERED: FLU VACC QS2019-20(6MOS UP)/PF 60 MCG/0.5 ML SYRINGE IM ONE (09:00)
[2019-01-24] MEDS ORDERED: Tamsulosin HCl 0.4 MG CAP PO SCH ×2 (09:00→21:00)
[2019-01-24] MEDS ORDERED: Aspirin Chewable 81 MG TAB PO SCH (09:00)
[2019-01-24 11:11] VITALS: TEMP 98.1
--- NOTE | 2019-01-25 15:24 | OP ---
DATE OF PROCEDURE: 01/23/2019 PREOPERATIVE DIAGNOSIS: Right carotid stenosis. PROCEDURE PERFORMED: Right carotid endarterectomy with bovine patch. ANESTHESIA: General. DESCRIPTION OF PROCEDURE: After adequate anesthesia had been obtained, the patient's ultrasound procedure was performed to isolate the carotid bulb. Following which, the patient was prepped and draped. An incision was made, extended through the platysma, isolating the common internal and external carotid arteries. After full heparinization and a good ACT level, clamps were applied, arteriotomy performed, and a 10-Bulgarian shunt was placed. Endarterectomy was then performed with nice tapering distally. The area was thoroughly irrigated following which, bovine patch was used to close the arteriotomy with a running 6-0 Prolene suture. Prior to completing the suture line, the shunt was removed. Vessels were backflushed and forward flushed and flow restored up the external and then internal carotid artery. Following the partial heparin reversal with protamine. Hemostasis was obtained. The wound was irrigated and closed in layers and the patient is to be taken to the ICU in guarded condition. Job ID: [id number]
--- NOTE | 2019-01-25 15:24 | DIS ---
DATE OF ADMISSION: 01/23/2019 DATE OF DISCHARGE: 01/24/2019 This is a gentleman, who suffered a left hemispheric stroke earlier this year and was found to have a critical right carotid stenosis and an ulcerated left carotid stenosis. He was admitted, where he underwent a right carotid endarterectomy. His postoperative course was remarkable for initially some low blood pressure, which was treated and then he had some difficulty urinating, requiring an I and O catheter, ultimately being able to void 300 mL and was discharged home to resume his Flomax, Paxil, magnesium, Fosamax, Protonix, Neurontin, and allopurinol. I discontinued his nighttime temazepam as well as his losartan due to his transient low blood pressure. Discharge and followup instructions were given to the family as well as the patient with the family to report his blood pressure readings as they accumulate them at home. Job ID: [id number]
== END 2019-01-24 16:00 | disposition home health service (06) | DRG 38 ==
LOC: SURG A 06:18 → CCU 10:15
PROVIDERS: ADMIT Thoracic Surgery (Cardiothoracic Vascular Surgery); ATTEND Thoracic Surgery (Cardiothoracic Vascular Surgery)
PROC: 03CH0ZZ Extirpation of Matter from Right Common Carotid Artery, Open Approach (ICD-10-PCS; principal; 2019-01-23)
PROC: 03UH0KZ Supplement Right Common Carotid Artery with Nonautologous Tissue Substitute, Open Approach (ICD-10-PCS; 2019-01-23)
DX: I65.23 Occlusion and stenosis of bilateral carotid arteries (principal); I69.351 Hemiplegia and hemiparesis following cerebral infarction affecting right dominant side; I10 Essential (primary) hypertension; M19.90 Unspecified osteoarthritis, unspecified site; M51.36 Other intervertebral disc degeneration, lumbar region; E78.5 Hyperlipidemia, unspecified; M10.9 Gout, unspecified; N40.0 Benign prostatic hyperplasia without lower urinary tract symptoms; F32.9 Major depressive disorder, single episode, unspecified; F41.9 Anxiety disorder, unspecified; Z96.651 Presence of right artificial knee joint; Z96.642 Presence of left artificial hip joint; I69.320 Aphasia following cerebral infarction; Z79.82 Long term (current) use of aspirin; Z79.899 Other long term (current) drug therapy; Z87.891 Personal history of nicotine dependence; Z88.0 Allergy status to penicillin; Z88.5 Allergy status to narcotic agent; I95.9 Hypotension, unspecified
CPT/HCPCS: 36415; 80048; 85025; J0360; J0670; J1265; J1642; J1644; J1956; J2250; J2370; J2405; J2704; J2720; J3010; J3490; J7050; J7620

== ENCOUNTER 2019-02-13 05:56 | Inpatient (IN) | payer MEDICARE ==
[2019-02-13] MEDS ORDERED: Protamine Sulfate 250 MG/25 ML VIAL ONE (06:40)
[2019-02-13] MEDS ORDERED: Heparin 5,000 UNITS/ML VIAL ONE (06:40)
[2019-02-13] MEDS ORDERED: Protamine Sulfate 50 MG/5 ML VIAL ONE (06:40)
[2019-02-13] MEDS ORDERED: Fentanyl 250 MCG/5 ML VIAL ONE (06:45)
[2019-02-13 06:51] LABS: #Basophils 0.1 thou/uL (0.0-0.2); #Eosinphils 0.1 thou/uL (0.0-0.7); #Lymphocytes 1.5 thou/uL (1.20-3.40); #Monocytes 0.5 thou/uL (0.11-0.59); #Neutrophils 3.7 thou/uL (1.40-6.50); %Basophils 0.9 % (0.0-1.0); %Eosinophils 2.5 % (0.0-10.0); %Lymphocytes 25.8 % (21.0-51.0); %Monocytes 7.8 % (0.0-10.0); Mean Corpuscular HGB CONC 31.5 g/dL (32.0-36.0); Mean Corpuscular Hemoglobin 27.7 pg (27.0-31.0); Mean Corpuscular Volume 88.1 fL (78.0-98.0); Mean Platelet Volume 9.7 fL (7.4-10.4); Platelet Count 231 thou/uL (130-400); RBC Distribution Width 14.1 % (11.5-14.5); White Blood Cell (WBC) Count 5.9 thou/uL (4.8-10.8)
[2019-02-13] MEDS ORDERED: Midazolam HCl 2 mg/2 ml Vial ONE (07:02)
[2019-02-13 07:13] LABS: Anion Gap 12 mmol/L (10-20); BUN (Urea Nitrogen) 13 mg/dL (8.4-25.7); Calc. Creatinine Clearance 68 mL/min (70-130); Calcium 9.9 mg/dL (7.8-10.44); Carbon Dioxide 28 mmol/L (23-31); Chloride 106 mmol/L (98-107); Estimated GFR-MDRD 65; Glucose 94 mg/dL (80-115); Potassium 3.9 mmol/L (3.5-5.1); Sodium 142 mmol/L (136-145)
[2019-02-13] MEDS ORDERED: Clindamycin/D5W 900 mg/50 ml Premix Bag ONE (07:22)
[2019-02-13] MEDS ORDERED: Bupivacaine/Epinephrine 0.25% 30 ML VIAL ONE (08:32)
[2019-02-13] MEDS ORDERED: Ondansetron HCl/PF 4 MG/2 ML Vial IVP PRN (09:17)
[2019-02-13] MEDS ORDERED: Promethazine HCl 25 MG/ML VIAL IM PRN (09:17)
[2019-02-13] MEDS ORDERED: PACU-Morphine 4MG/ML VIAL SLOW IVP PRN (09:17)
[2019-02-13] MEDS ORDERED: Promethazine HCl 25 MG/ML VIAL SLOW IVP PRN (09:17)
[2019-02-13] MEDS ORDERED: Morphine 4 MG/ML VIAL ONE (09:28)
[2019-02-13] MEDS ORDERED: Ondansetron PF 4 MG/2 ML Vial IVP PRN (09:56)
[2019-02-13] MEDS ORDERED: niCARdipine 25 MG in Sodium Chloride 0.9% 250 ML 250 ML IVPB PRN (09:56)
[2019-02-13] MEDS ORDERED: DOPamine 400 MG/D5W 250 ML 250 ML IVPB PRN (09:56)
[2019-02-13] MEDS ORDERED: Tamsulosin HCl 0.4 MG CAP PO SCH (10:15)
[2019-02-13] MEDS ORDERED: Aspirin Chewable 81 MG TAB PO SCH (10:15)
[2019-02-13 10:58] VITALS: BMI 28.0
[2019-02-13] MEDS: Losartan 25 MG TAB PO SCH ×2 (11:00→18:24)
[2019-02-13] MEDS: Sodium Chloride 0.9% 1,000 ML IV SCH ×2 (11:54→20:07)
[2019-02-13] MEDS: Clindamycin/D5W 900 MG in Premix Bag 1 BAG IVPB SCH ×2 (13:12→20:06)
--- NOTE | 2019-02-13 13:40 | OP ---
DATE OF PROCEDURE: 02/13/2019 PREOPERATIVE DIAGNOSIS: Ulcerated plaque, left carotid artery. POSTOPERATIVE DIAGNOSIS: Ulcerated plaque, left carotid artery. PROCEDURE PERFORMED: Left carotid endarterectomy with bovine patch angioplasty. ANESTHESIA: General. ESTIMATED BLOOD LOSS: Minimal. DESCRIPTION OF PROCEDURE: After adequate anesthesia had been obtained, the patient's head was turned to the right, prepped and draped. Incision was made in the anterior to the sternocleidomastoid muscle, where the patient had platysma divided. The facial vein was ligated and divided, following which, the common internal and external carotid arteries were mobilized. Hypoglossal nerve was not specifically identified. After 7500 units of heparin with an adequate ACT of about 220 seconds, clamps were applied. Arteriotomy performed. A 12-Lao shunt was then placed, following which an endarterectomy was performed with nice tapering distally. There was an ulcerated plaque, but it was not as complex as I had anticipated from the CT scan. The area was thoroughly irrigated and after this had been done, the bovine patch was secured in place with a running 6-0 Prolene suture. Prior to completing the suture line, the shunt was removed, vessels were backflushed and forward flushed and flow was restored up the external and then internal carotid artery. Heparin was partially reversed with protamine. Following which, the wound was irrigated and closed in layers after obtaining excellent hemostasis. Job ID: [id number]
[2019-02-13] MEDS: Fentanyl 100 MCG/2 ML VIAL SLOW IVP PRN ×2 (14:18→20:18)
[2019-02-13] MEDS: Acetaminophen 325 MG TAB PO PRN ×2 (14:36→20:20)
[2019-02-13] MEDS ORDERED: Atorvastatin Calcium 20 MG TAB PO SCH (21:00)
[2019-02-14] MEDS: Clindamycin/D5W 900 MG in Premix Bag 1 BAG IVPB SCH ×2 (01:43→08:07)
[2019-02-14] MEDS: Acetaminophen 325 MG TAB PO PRN ×2 (01:44→08:07)
[2019-02-14] MEDS: Fentanyl 100 MCG/2 ML VIAL SLOW IVP PRN (01:44)
[2019-02-14] MEDS: Sodium Chloride 0.9% 1,000 ML IV SCH (07:19)
[2019-02-14 07:24] VITALS: TEMP 98.6
[2019-02-14] MEDS ORDERED: Tamsulosin HCl 0.4 MG CAP PO SCH (09:00)
[2019-02-14] MEDS ORDERED: Losartan 25 MG TAB PO SCH (09:00)
[2019-02-14] MEDS ORDERED: Aspirin Chewable 81 MG TAB PO SCH (09:00)
--- NOTE | 2019-02-14 13:01 | DIS ---
DATE OF ADMISSION: 02/13/2019 DATE OF DISCHARGE: 02/14/2019 HOSPITAL COURSE: The patient was admitted on 02/13, where he underwent a left carotid endarterectomy. He did well from that and was discharged the following day on his home medicine regimen with no changes and no prescriptions. Discharge and followup instructions have been given. Job ID: [id number]
== END 2019-02-14 09:58 | disposition home or self-care (01) | DRG 38 ==
LOC: SURG A 05:56 → CCU 09:43
PROVIDERS: ADMIT Thoracic Surgery (Cardiothoracic Vascular Surgery); ATTEND Thoracic Surgery (Cardiothoracic Vascular Surgery)
PROC: 03CJ0ZZ Extirpation of Matter from Left Common Carotid Artery, Open Approach (ICD-10-PCS; principal; 2019-02-13)
PROC: 03UJ0KZ Supplement Left Common Carotid Artery with Nonautologous Tissue Substitute, Open Approach (ICD-10-PCS; 2019-02-13)
DX: I65.22 Occlusion and stenosis of left carotid artery (principal); I69.351 Hemiplegia and hemiparesis following cerebral infarction affecting right dominant side; Z96.641 Presence of right artificial hip joint; I10 Essential (primary) hypertension; E78.5 Hyperlipidemia, unspecified; M19.90 Unspecified osteoarthritis, unspecified site; M10.9 Gout, unspecified; F32.9 Major depressive disorder, single episode, unspecified; F41.9 Anxiety disorder, unspecified; N40.0 Benign prostatic hyperplasia without lower urinary tract symptoms; I69.320 Aphasia following cerebral infarction; Z87.891 Personal history of nicotine dependence; Z88.5 Allergy status to narcotic agent; Z88.0 Allergy status to penicillin; Z96.659 Presence of unspecified artificial knee joint
CPT/HCPCS: 36415; 80048; 85025; J1642; J1644; J2250; J2270; J2720; J3010; J3490

== ENCOUNTER 2019-09-04 14:11 | Emergency (ER) | payer MEDICAID, MEDICARE ==
--- NOTE | 2019-09-04 15:21 | RAD ---
RIGHT HIP 2 VIEWS: HISTORY: Right hip pain. FINDINGS/IMPRESSION: There are degenerative changes in the hip joint. No fracture, dislocation, or bony destruction is id entified. POS: [facility]
--- NOTE | 2019-09-04 15:23 | RAD ---
Exam: XR Femur Rt 2 View STANDARD HISTORY: Right lower extremity pain. COMPARISON: None FINDINGS: Right total knee prosthesis is present. Mild osteoarthritis right hip is present. No acute fracture, dislocation, or other acute osseous abnormality is identified. Vascular calcifications are seen in the iliac and femoral arteries. IMPRESSION: No acute osseous abnormality is identified.
[2019-09-04] MEDS ORDERED: Morphine 4 MG/ML VIAL ONE (16:03)
[2019-09-04] MEDS ORDERED: Ketorolac Tromethamine 30 MG/ML VIAL ONE (16:03)
== END 2019-09-04 16:22 | disposition home or self-care (01) ==
LOC: ERS 14:11
DX: M25.551 Pain in right hip (principal); M79.661 Pain in right lower leg; I10 Essential (primary) hypertension; M10.9 Gout, unspecified; E78.5 Hyperlipidemia, unspecified; K21.9 Gastro-esophageal reflux disease without esophagitis; M81.0 Age-related osteoporosis without current pathological fracture; Z86.73 Personal history of transient ischemic attack (TIA), and cerebral infarction without residual deficits; F32.9 Major depressive disorder, single episode, unspecified; F41.9 Anxiety disorder, unspecified; Z87.891 Personal history of nicotine dependence; Z79.899 Other long term (current) drug therapy
CPT/HCPCS: 96374; 96375; J1885; J2270

== ENCOUNTER 2019-09-24 14:13 | Emergency (ER) | payer MEDICARE ==
[2019-09-24] MEDS ORDERED: Morphine 4 MG/ML VIAL ONE (14:46)
[2019-09-24 14:55] LABS: #Basophils 0.1 thou/uL (0.0-0.2); #Eosinphils 0.2 thou/uL (0.0-0.7); #Lymphocytes 1.9 thou/uL (1.20-3.40); #Monocytes 0.5 thou/uL (0.11-0.59); #Neutrophils 3.3 thou/uL (1.40-6.50); %Basophils 1.7 % (0.0-1.0); %Eosinophils 3.5 % (0.0-10.0); %Lymphocytes 31.6 % (21.0-51.0); %Monocytes 8.2 % (0.0-10.0); Hemoglobin 13.1 g/dL (14.0-18.0); Mean Corpuscular HGB CONC 32.2 g/dL (32.0-36.0); Mean Corpuscular Hemoglobin 27.9 pg (27.0-31.0); Mean Corpuscular Volume 86.5 fL (78.0-98.0); Mean Platelet Volume 8.7 fL (7.4-10.4); Platelet Count 229 thou/uL (130-400); RBC Distribution Width 14.1 % (11.5-14.5); Red Blood Cell (RBC) Count 4.69 mill/uL (4.70-6.10); White Blood Cell (WBC) Count 6.1 thou/uL (4.8-10.8)
[2019-09-24 15:27] LABS: ALT (SGPT) 12 U/L (8-55); AST (SGOT) 17 U/L (5-34); Alkaline Phosphatase 108 U/L (40-110); Anion Gap 14 mmol/L (10-20); BUN (Urea Nitrogen) 16 mg/dL (8.4-25.7); Bilirubin, Total 0.8 mg/dL (0.2-1.2); Calc. Creatinine Clearance 0 mL/min (70-130); Calcium 9.3 mg/dL (7.8-10.44); Carbon Dioxide 27 mmol/L (23-31); Chloride 100 mmol/L (98-107); Estimated GFR-MDRD 51; Globulin 3.1 g/dL (2.4-3.5); Glucose 85 mg/dL (80-115); Lipase 29 U/L (8-78); Potassium 3.5 mmol/L (3.5-5.1); Protein, Total 7.1 g/dL (5.8-8.1); Sodium 137 mmol/L (136-145)
[2019-09-24 15:56] LABS: Bilirubin Negative (Negative); Blood, Urine Negative (Negative); Clarity Clear (Clear); Glucose, Urine (Dipstick) Normal (Negative); Leukocyte Negative Leu/uL (Negative); Nitrite Negative (Negative); Protein, Urine (Dipstick) Negative (Neg-Trace); Urobilinogen Normal mg/dL (Less than 2)
[2019-09-24] MEDS ORDERED: Ketorolac Tromethamine 30 MG/ML VIAL ONE (16:35)
[2019-09-24] MEDS ORDERED: Cyclobenzaprine 10 MG TAB ONE (16:35)
--- NOTE | 2019-09-24 17:50 | CT ---
EXAM: ABDOMEN AND PELVIC CT WITHOUT IV CONTRAST: 09/24/19 HISTORY: Left flank pain. FINDINGS: Lung bases appear clear. Small amount of pericardial fluid. Small hiatal hernia. Liver appears unremarkable. The gallbladder is somewhat contracted and contains multiple gallstones w ithout gallbladder wall thickening or pericholecystic fluid or fat stranding. Pancreas, spleen, adren al glands are unremarkable. No evidence for renal calculi or acute obstruction. No solid or cystic renal mass. No CT evidence for acute appendicitis. Minimal sigmoid colon diverticulosis without acut e diverticulitis. Bilateral fat containing inguinal hernias. IMPRESSION: No significant acute process within the abdomen or pelvis. Small hiatal hernia. No renal calculus or acute obstruction. POS: [facility]
== END 2019-09-24 17:03 | disposition home or self-care (01) ==
LOC: ERS 14:13
DX: M54.9 Dorsalgia, unspecified (principal); G89.29 Other chronic pain; I10 Essential (primary) hypertension; E78.5 Hyperlipidemia, unspecified; K21.9 Gastro-esophageal reflux disease without esophagitis; Z87.891 Personal history of nicotine dependence; Z79.899 Other long term (current) drug therapy
CPT/HCPCS: 36415; 74176; 80053; 81003; 83690; 85025; 94760; 96374; 96375; J1885; J2270

== ENCOUNTER 2021-05-19 09:26 | Inpatient (IN) | payer MEDICARE ==
[2021-05-19 10:15] LABS: #Basophils 0.1 thou/uL (0.0-0.2); #Eosinphils 0.1 thou/uL (0.0-0.7); #Lymphocytes 1.3 thou/uL (1.20-3.40); #Monocytes 0.6 thou/uL (0.11-0.59); #Neutrophils 11.5 thou/uL (1.40-6.50); %Basophils 0.5 % (0.0-1.0); %Eosinophils 0.5 % (0.0-10.0); %Lymphocytes 9.7 % (21.0-51.0); %Monocytes 4.3 % (0.0-10.0); Hemoglobin 14.5 g/dL (14.0-18.0); Mean Corpuscular HGB CONC 31.4 g/dL (32.0-36.0); Mean Corpuscular Hemoglobin 26.3 pg (27.0-31.0); Mean Corpuscular Volume 83.7 fL (78.0-98.0); Mean Platelet Volume 8.3 fL (7.4-10.4); Platelet Count 251 thou/uL (130-400); RBC Distribution Width 14.9 % (11.5-14.5); Red Blood Cell (RBC) Count 5.53 mill/uL (4.70-6.10); White Blood Cell (WBC) Count 13.6 thou/uL (4.8-10.8)
[2021-05-19 10:22] LABS: ALT (SGPT) 32 U/L (8-55); AST (SGOT) 22 U/L (5-34); Albumin 4.4 g/dL (3.4-4.8); Alkaline Phosphatase 121 U/L (40-110); Anion Gap 14 mmol/L (10-20); BUN (Urea Nitrogen) 14 mg/dL (8.4-25.7); Calc. Creatinine Clearance 0 mL/min (70-130); Carbon Dioxide 30 mmol/L (23-31); Chloride 97 mmol/L (98-107); Globulin 3.2 g/dL (2.4-3.5); Glucose 156 mg/dL (80-115); Potassium 4.2 mmol/L (3.5-5.1); Protein, Total 7.6 g/dL (5.8-8.1); Sodium 137 mmol/L (136-145)
[2021-05-19] MEDS ORDERED: Metoclopramide HCl 10 MG/2 ML VIAL ONE (10:32)
[2021-05-19] MEDS ORDERED: Labetalol HCl 100 MG/20 ML VIAL ONE (10:32)
[2021-05-19] MEDS ORDERED: Acetaminophen 500 MG TAB ONE (10:32)
[2021-05-19] MEDS ORDERED: diphenhydrAMINE 50 MG/ML VIAL ONE (10:32)
[2021-05-19 12:29] LABS: Acetaminophen Less than 6.0 mcg/mL (10.0-30.0); Alcohol Less than 10 mg/dL (Less than 10); Salicylate Less than 8.0 mg/dL (15.0-30.0)
[2021-05-19] MEDS ORDERED: Vancomycin 1 GM/200 ML BAG ONE (13:33)
[2021-05-19] MEDS ORDERED: cefTRIAXone\\ROCEPHIN 2 GM VIAL ONE (13:33)
[2021-05-19] MEDS ORDERED: Fentanyl 100 MCG/2 ML VIAL ONE (13:33)
[2021-05-19] MEDS ORDERED: Ondansetron PF 4 MG/2 ML Vial IVP PRN (13:39)
[2021-05-19] MEDS ORDERED: Acetaminophen 325 MG TAB PO PRN (13:39)
[2021-05-19] MEDS ORDERED: Senokot S 8.6-50 MG TAB PO PRN (13:39)
[2021-05-19] MEDS ORDERED: hydrALAZINE 20 MG/ML VIAL SLOW IVP PRN (13:39)
[2021-05-19] MEDS ORDERED: Ondansetron ODT 4 MG TAB PO PRN (13:39)
[2021-05-19] MEDS ORDERED: Vancomycin 1.5 GRAM/300 ML BAG 1.5 GM in Premix Bag 1 BAG IVPB SCH (14:00)
[2021-05-19] MEDS ORDERED: Aspirin 325 mg Enteric Coated Tablet PO SCH (14:00)
[2021-05-19] MEDS: Sodium Chloride 0.9% 1,000 ML IV SCH (15:00)
[2021-05-19 15:18] LABS: Hemoglobin A1c 5.8 % (4.0-6.0)
[2021-05-19 16:23] LABS: SARS-CoV-2 NAA Rapid Test Not Detected (NotDetected)
[2021-05-19 17:36] LABS: Amphetamine Not Detected (NotDetected); Bacteria/HPF 2+ HPF (None Seen); Barbiturates Screen Not Detected (NotDetected); Benzodiazepine Screen Not Detected (NotDetected); Bilirubin Negative (Negative); Blood, Urine Negative (Negative); Clarity Clear (Clear); Cocaine Metabolite Screen Not Detected (NotDetected); Glucose, Urine (Dipstick) Normal (Negative); Ketone, Urine Negative (Negative); Leukocyte Negative Leu/uL (Negative); Methadone Not Detected (NotDetected); Methamphetamine Not Detected (NotDetected); Nitrite Negative (Negative); Opiate Screen Not Detected (NotDetected); Oxycodone Screen Not Detected (NotDetected); Phencyclidine (PCP) Not Detected (NotDetected); Protein, Urine (Dipstick) 200 mg/dL (Neg-Trace); RBC/HPF 0-3 HPF (0-3); Squamous Epithelial None Seen HPF (0-3); THC/Cannabinoid Screen Not Detected (NotDetected); Tricyclic Screen Not Detected (NotDetected); Urobilinogen Normal mg/dL (Less than 2); WBC/HPF 0-3 HPF (0-3)
[2021-05-19] MEDS ORDERED: Ondansetron PF 4 MG/2 ML Vial ONE (18:02)
[2021-05-19] MEDS: Calcium Carbonate 600 MG + Vit D TAB PO SCH (18:31)
[2021-05-19 20:43] VITALS: BMI 28.3
[2021-05-19] MEDS ORDERED: Labetalol HCl 100 MG/20 ML VIAL SLOW IVP PRN (22:21)
[2021-05-19] MEDS: Atorvastatin Calcium 40 MG TAB PO SCH (22:33)
[2021-05-19] MEDS: Tamsulosin HCl 0.4 MG CAP PO SCH (22:33)
[2021-05-19] MEDS ORDERED: Ketorolac Tromethamine 30 MG/ML VIAL IVP SCH (23:59)
[2021-05-20] MEDS: Sodium Chloride 0.9% 1,000 ML IV SCH ×2 (00:03→17:25)
[2021-05-20 05:55] LABS: #Lymphocytes 1.8 thou/uL (1.20-3.40); #Monocytes 0.9 thou/uL (0.11-0.59); #Neutrophils 7.9 thou/uL (1.40-6.50); %Basophils 0.2 % (0.0-1.0); %Eosinophils 0.4 % (0.0-10.0); %Lymphocytes 16.8 % (21.0-51.0); %Monocytes 8.3 % (0.0-10.0); %Neutrophils 74.3 % (42.0-75.0); Hemoglobin 12.3 g/dL (14.0-18.0); Mean Corpuscular HGB CONC 32.2 g/dL (32.0-36.0); Mean Corpuscular Hemoglobin 27.2 pg (27.0-31.0); Mean Corpuscular Volume 84.3 fL (78.0-98.0); Mean Platelet Volume 8.1 fL (7.4-10.4); Platelet Count 208 thou/uL (130-400); RBC Distribution Width 14.6 % (11.5-14.5); Red Blood Cell (RBC) Count 4.54 mill/uL (4.70-6.10); White Blood Cell (WBC) Count 10.6 thou/uL (4.8-10.8)
[2021-05-20 06:16] LABS: Anion Gap 13 mmol/L (10-20); BUN (Urea Nitrogen) 14 mg/dL (8.4-25.7); Calc. Creatinine Clearance 66 mL/min (70-130); Calcium 8.2 mg/dL (7.8-10.44); Carbon Dioxide 24 mmol/L (23-31); Cardiac Risk 4.1 (Less than 4.5); Chloride 104 mmol/L (98-107); Cholesterol 172 mg/dl (< 200 Desired); Glucose 85 mg/dL (80-115); HDL Cholesterol 42 mg/dL (>60 Neg Risk); LDL Cholesterol, Calculated 111 mg/dL; Potassium 3.4 mmol/L (3.5-5.1); Sodium 138 mmol/L (136-145); Triglycerides 94 mg/dL (Less than 150)
[2021-05-20] MEDS: Enoxaparin Sodium 40 MG/0.4 ML SYRINGE SC SCH (09:05)
[2021-05-20] MEDS: Calcium Carbonate 600 MG + Vit D TAB PO SCH ×2 (09:06→17:25)
[2021-05-20] MEDS ORDERED: Potassium Chloride 10 MEQ in Premix Bag 1 BAG IVPB SCH (10:15)
[2021-05-20] MEDS: Aspirin 325 mg Enteric Coated Tablet PO SCH (10:58)
[2021-05-20] MEDS: PARoxetine 20 MG TAB PO SCH (10:58)
[2021-05-20] MEDS: Allopurinol 300 MG TAB PO SCH (10:58)
[2021-05-20] MEDS: Losartan 25 MG TAB PO SCH (10:58)
[2021-05-20] MEDS: HYDROcodone/Acetaminophen 5/325 mg Tablet PO PRN (15:01)
[2021-05-20] MEDS ORDERED: Amlodipine 10 MG TAB PO SCH (16:00)
[2021-05-20] MEDS: cefTRIAXone\\ROCEPHIN 2 GM in Sodium Chloride 0.9% 100 ML IVPB SCH (17:24)
[2021-05-20] MEDS: Tamsulosin HCl 0.4 MG CAP PO SCH (21:03)
[2021-05-20] MEDS: Atorvastatin Calcium 40 MG TAB PO SCH (21:03)
[2021-05-21] MEDS: Enoxaparin Sodium 40 MG/0.4 ML SYRINGE SC SCH (08:25)
[2021-05-21] MEDS: Aspirin 325 mg Enteric Coated Tablet PO SCH (08:25)
[2021-05-21] MEDS: Sodium Chloride 0.9% 1,000 ML IV SCH ×2 (08:25→22:57)
[2021-05-21] MEDS: Losartan 25 MG TAB PO SCH (08:25)
[2021-05-21] MEDS: Amlodipine 10 MG TAB PO SCH (08:26)
[2021-05-21] MEDS: PARoxetine 20 MG TAB PO SCH (08:26)
[2021-05-21] MEDS: Allopurinol 300 MG TAB PO SCH (08:26)
[2021-05-21] MEDS: Calcium Carbonate 600 MG + Vit D TAB PO SCH ×2 (08:26→17:32)
[2021-05-21 09:48] LABS: #Eosinphils 0.1 thou/uL (0.0-0.7); #Lymphocytes 1.7 thou/uL (1.20-3.40); #Monocytes 0.6 thou/uL (0.11-0.59); #Neutrophils 7.7 thou/uL (1.40-6.50); %Basophils 0.5 % (0.0-1.0); %Eosinophils 1.5 % (0.0-10.0); %Lymphocytes 16.5 % (21.0-51.0); %Monocytes 5.7 % (0.0-10.0); %Neutrophils 75.9 % (42.0-75.0); Hemoglobin 13.1 g/dL (14.0-18.0); Mean Corpuscular HGB CONC 31.1 g/dL (32.0-36.0); Mean Corpuscular Hemoglobin 26.1 pg (27.0-31.0); Mean Platelet Volume 8.4 fL (7.4-10.4); Platelet Count 222 thou/uL (130-400); White Blood Cell (WBC) Count 10.2 thou/uL (4.8-10.8)
[2021-05-21 10:03] LABS: Anion Gap 14 mmol/L (10-20); BUN (Urea Nitrogen) 10 mg/dL (8.4-25.7); Calc. Creatinine Clearance 91 mL/min (70-130); Calcium 8.6 mg/dL (7.8-10.44); Carbon Dioxide 24 mmol/L (23-31); Chloride 103 mmol/L (98-107); Glucose 104 mg/dL (80-115); Potassium 3.7 mmol/L (3.5-5.1); Sodium 137 mmol/L (136-145)
[2021-05-21] MEDS: cefTRIAXone\\ROCEPHIN 2 GM in Sodium Chloride 0.9% 100 ML IVPB SCH (14:04)
[2021-05-21] MEDS ORDERED: traZODone HCl 50 MG TAB PO PRN (18:05)
[2021-05-21] MEDS: Atorvastatin Calcium 40 MG TAB PO SCH (20:20)
[2021-05-21] MEDS: Tamsulosin HCl 0.4 MG CAP PO SCH (20:20)
[2021-05-22 06:01] LABS: #Eosinphils 0.2 thou/uL (0.0-0.7); #Lymphocytes 1.5 thou/uL (1.20-3.40); #Monocytes 0.6 thou/uL (0.11-0.59); #Neutrophils 5.1 thou/uL (1.40-6.50); %Basophils 0.6 % (0.0-1.0); %Eosinophils 2.3 % (0.0-10.0); %Monocytes 8.7 % (0.0-10.0); %Neutrophils 68.4 % (42.0-75.0); Hemoglobin 12.5 g/dL (14.0-18.0); Mean Corpuscular HGB CONC 32.5 g/dL (32.0-36.0); Mean Corpuscular Hemoglobin 27.2 pg (27.0-31.0); Mean Corpuscular Volume 83.8 fL (78.0-98.0); Mean Platelet Volume 8.5 fL (7.4-10.4); Platelet Count 171 thou/uL (130-400); RBC Distribution Width 14.8 % (11.5-14.5); Red Blood Cell (RBC) Count 4.58 mill/uL (4.70-6.10); White Blood Cell (WBC) Count 7.4 thou/uL (4.8-10.8)
[2021-05-22 06:20] LABS: Anion Gap 10 mmol/L (10-20); BUN (Urea Nitrogen) 10 mg/dL (8.4-25.7); Calc. Creatinine Clearance 75 mL/min (70-130); Calcium 8.5 mg/dL (7.8-10.44); Carbon Dioxide 27 mmol/L (23-31); Chloride 106 mmol/L (98-107); Glucose 83 mg/dL (80-115); Potassium 3.8 mmol/L (3.5-5.1); Sodium 139 mmol/L (136-145)
[2021-05-22 08:03] VITALS: TEMP 98.2
[2021-05-22] MEDS: PARoxetine 20 MG TAB PO SCH (08:17)
[2021-05-22] MEDS: Aspirin 325 mg Enteric Coated Tablet PO SCH (08:17)
[2021-05-22] MEDS: Losartan 25 MG TAB PO SCH (08:18)
[2021-05-22] MEDS: Enoxaparin Sodium 40 MG/0.4 ML SYRINGE SC SCH (08:18)
[2021-05-22] MEDS: Allopurinol 300 MG TAB PO SCH (08:18)
[2021-05-22] MEDS: Amlodipine 10 MG TAB PO SCH (08:19)
[2021-05-22] MEDS: Calcium Carbonate 600 MG + Vit D TAB PO SCH (08:19)
[2021-05-22] MEDS: HYDROcodone/Acetaminophen 5/325 mg Tablet PO PRN (11:02)
[2021-05-22] MEDS: Sodium Chloride 0.9% 1,000 ML IV SCH (11:02)
[2021-05-22] MEDS: cefTRIAXone\\ROCEPHIN 2 GM in Sodium Chloride 0.9% 100 ML IVPB SCH (12:30)
[2021-05-22 12:44] VITALS: BP 137/63
== END 2021-05-22 14:55 | disposition home health service (06) | DRG 77 ==
LOC: ERS 09:26 → ERHOLD 12:39 → NEURO 20:47
PROVIDERS: ADMIT Internal Medicine; ATTEND Hospitalist
DX: I67.4 Hypertensive encephalopathy (principal); J96.01 Acute respiratory failure with hypoxia; I16.1 Hypertensive emergency; Z20.822 Contact with and (suspected) exposure to COVID-19; I10 Essential (primary) hypertension; E78.5 Hyperlipidemia, unspecified; G62.9 Polyneuropathy, unspecified; Z96.651 Presence of right artificial knee joint; Z96.641 Presence of right artificial hip joint; F32.A Depression, unspecified; F41.9 Anxiety disorder, unspecified; M10.9 Gout, unspecified; N40.0 Benign prostatic hyperplasia without lower urinary tract symptoms; M81.0 Age-related osteoporosis without current pathological fracture; F17.210 Nicotine dependence, cigarettes, uncomplicated; K21.9 Gastro-esophageal reflux disease without esophagitis; F19.10 Other psychoactive substance abuse, uncomplicated; I69.320 Aphasia following cerebral infarction; Z91.14 Patient's other noncompliance with medication regimen; Z88.5 Allergy status to narcotic agent; Z88.0 Allergy status to penicillin; Z90.79 Acquired absence of other genital organ(s); Z79.899 Other long term (current) drug therapy; Z79.82 Long term (current) use of aspirin
CPT/HCPCS: 0240U; 36415; 70450; 70551; 71045; 80048; 80053; 80061; 80306; 80307; 81015; 83036; 83605; 83690; 84443; 84484; 85025; 86140; 87040; 87086; 93005; 93306; 96365; 96366; 96367; 96375; 96376; J0696; J1200; J1650; J1885; J2405; J2765; J3010; J3370; J3480; J3490; J7050

== ENCOUNTER 2021-09-21 19:34 | Emergency (ER) | payer MEDICARE | END 2021-09-21 21:58 | disposition home or self-care (01) | LOC: ERS 19:34 | DX: M25.551 Pain in right hip (principal); I10 Essential (primary) hypertension; E78.5 Hyperlipidemia, unspecified; K21.9 Gastro-esophageal reflux disease without esophagitis; Z86.73 Personal history of transient ischemic attack (TIA), and cerebral infarction without residual deficits; Z87.891 Personal history of nicotine dependence; W19.XXXA Unspecified fall, initial encounter | CPT/HCPCS: 72170 ==

== ENCOUNTER 2021-12-23 09:28 | Outpatient (CLI) | payer MEDICARE | END 2021-12-23 09:29 | disposition home or self-care (01) | LOC: MRI 09:28 | PROVIDERS: ATTEND Family Medicine | DX: M54.50 Low back pain, unspecified (principal); M47.816 Spondylosis without myelopathy or radiculopathy, lumbar region; Z98.890 Other specified postprocedural states | CPT/HCPCS: 72148 ==

== ENCOUNTER 2022-05-21 15:42 | Observation (INO) | payer MEDICARE ==
[~2022-05-21 15:42] MED LIST: Iopamidol-370 76% 500 ML 1 ML ONE
[2022-05-21 16:44] LABS: #Basophils 0.1 thou/uL (0.0-0.2); #Eosinphils 0.1 thou/uL (0.0-0.7); #Lymphocytes 1.4 thou/uL (1.20-3.40); #Monocytes 0.9 thou/uL (0.11-0.59); %Basophils 0.6 % (0.0-1.0); %Eosinophils 0.5 % (0.0-10.0); %Lymphocytes 11.4 % (21.0-51.0); %Monocytes 7.4 % (0.0-10.0); %Neutrophils 80.1 % (42.0-75.0); Hemoglobin 14.2 g/dL (14.0-18.0); Mean Corpuscular HGB CONC 33.4 g/dL (32.0-36.0); Mean Corpuscular Hemoglobin 29.9 pg (27.0-31.0); Mean Corpuscular Volume 89.6 fl (78.0-98.0); Mean Platelet Volume 9.1 fL (7.4-10.4); Platelet Count 217 10x3/uL (130-400); RBC Distribution Width 13.9 % (11.5-14.5); Red Blood Cell (RBC) Count 4.74 mill/uL (4.70-6.10); White Blood Cell (WBC) Count 12.5 10x3/uL (4.8-10.8)
[2022-05-21 17:11] LABS: Acetaminophen Less than 10.0 mcg/mL (10.0-30.0); Alcohol Less than 10 mg/dL (Less than 10); Salicylate Less than 8.0 mg/dL (15.0-30.0)
[2022-05-21 17:12] LABS: ALT (SGPT) 24 U/L (8-55); AST (SGOT) 14 U/L (5-34); Albumin 4.6 g/dL (3.4-4.8); Alkaline Phosphatase 87 U/L (40-110); Anion Gap 13 mmol/L (10-20); BUN (Urea Nitrogen) 25 mg/dL (8.4-25.7); Bilirubin, Total 0.9 mg/dL (0.2-1.2); Calc. Creatinine Clearance 0 mL/min (70-130); Calcium 9.5 mg/dL (7.8-10.44); Carbon Dioxide 25 mmol/L (23-31); Chloride 101 mmol/L (98-107); Estimated GFR 38; Globulin 2.7 g/dL (2.4-3.5); Glucose 77 mg/dL (80-115); Lipase 57 U/L (8-78); Potassium 4.1 mmol/L (3.5-5.1); Protein, Total 7.3 g/dL (5.8-8.1); Sodium 135 mmol/L (136-145)
[2022-05-21] MEDS ORDERED: Ondansetron PF 4 MG/2 ML Vial ONE (17:28)
[2022-05-21 18:01] LABS: Bilirubin Negative (Negative); Blood, Urine Negative (Negative); Clarity Clear (Clear); Glucose, Urine (Dipstick) Normal (Negative); Ketone, Urine Negative (Negative); Leukocyte Negative Leu/uL (Negative); Nitrite Negative (Negative); Protein, Urine (Dipstick) Negative (Neg-Trace); Specific Gravity, Urine 1.005 (1.002-1.036); Urobilinogen Normal mg/dL (Less than 2); pH, Urine 6.5 (5.0-9.0)
[2022-05-21 18:09] LABS: Amphetamine Not Detected (NotDetected); Barbiturates Screen Not Detected (NotDetected); Benzodiazepine Screen Not Detected (NotDetected); Cocaine Metabolite Screen Not Detected (NotDetected); Methadone Not Detected (NotDetected); Methamphetamine Not Detected (NotDetected); Opiate Screen Not Detected (NotDetected); Oxycodone Screen Not Detected (NotDetected); Phencyclidine (PCP) Not Detected (NotDetected); THC/Cannabinoid Screen Not Detected (NotDetected); Tricyclic Screen Not Detected (NotDetected)
[2022-05-21] MEDS ORDERED: Ondansetron ODT 4 MG TAB PO PRN (20:06)
[2022-05-21] MEDS ORDERED: Ondansetron PF 4 MG/2 ML Vial IVP PRN (20:06)
[2022-05-21] MEDS ORDERED: Acetaminophen 650 MG Suppository PR PRN (20:06)
[2022-05-21 20:16] LABS: SARS-CoV-2 NAA Rapid Test Not Detected (NotDetected)
[2022-05-21 20:31] LABS: Troponin I Less than 0.010 ng/mL (< 0.028)
[2022-05-21] MEDS ORDERED: Polyethylene Glycol 3350 17 GM Packet PO PRN (20:44)
[2022-05-21 23:15] VITALS: BMI 25.9
[2022-05-21] MEDS: Sodium Chloride 0.9% 1,000 ML IV SCH (23:34)
[2022-05-21] MEDS: Melatonin 3 MG TAB PO PRN (23:42)
[2022-05-21] MEDS: Acetaminophen 325 MG TAB PO PRN (23:42)
[2022-05-22 00:57] LABS: Troponin I Less than 0.010 ng/mL (< 0.028)
[2022-05-22 05:01] LABS: #Basophils 0.1 thou/uL (0.0-0.2); #Eosinphils 0.1 thou/uL (0.0-0.7); #Lymphocytes 1.9 thou/uL (1.20-3.40); #Monocytes 0.5 thou/uL (0.11-0.59); %Basophils 1.3 % (0.0-1.0); %Eosinophils 0.8 % (0.0-10.0); %Lymphocytes 24.8 % (21.0-51.0); %Monocytes 6.5 % (0.0-10.0); %Neutrophils 66.6 % (42.0-75.0); Hemoglobin 13.2 g/dL (14.0-18.0); Mean Corpuscular HGB CONC 32.7 g/dL (32.0-36.0); Mean Corpuscular Hemoglobin 29.7 pg (27.0-31.0); Mean Corpuscular Volume 90.9 fl (78.0-98.0); Platelet Count 200 10x3/uL (130-400); RBC Distribution Width 13.9 % (11.5-14.5); Red Blood Cell (RBC) Count 4.43 mill/uL (4.70-6.10); White Blood Cell (WBC) Count 7.5 10x3/uL (4.8-10.8)
[2022-05-22 05:27] LABS: Anion Gap 11 mmol/L (10-20); BUN (Urea Nitrogen) 20 mg/dL (8.4-25.7); Calc. Creatinine Clearance 56 mL/min (70-130); Calcium 8.8 mg/dL (7.8-10.44); Carbon Dioxide 23 mmol/L (23-31); Cardiac Risk 2.9 (Less than 4.5); Chloride 106 mmol/L (98-107); Cholesterol 127 mg/dl (< 200 Desired); Estimated GFR 55; Glucose 92 mg/dL (80-115); HDL Cholesterol 44 mg/dL (>60 Neg Risk); LDL Cholesterol, Calculated 71 mg/dL; Potassium 4.3 mmol/L (3.5-5.1); Sodium 136 mmol/L (136-145); Triglycerides 58 mg/dL (Less than 150)
[2022-05-22] MEDS: Sodium Chloride 0.9% 1,000 ML IV SCH ×2 (14:27→18:39)
[2022-05-22] MEDS: Melatonin 3 MG TAB PO PRN (19:51)
[2022-05-22] MEDS: Acetaminophen 325 MG TAB PO PRN (19:51)
[2022-05-22] MEDS ORDERED: Atorvastatin Calcium 20 MG TAB PO SCH (21:00)
[2022-05-23] MEDS: Sodium Chloride 0.9% 1,000 ML IV SCH (06:11)
[2022-05-23] MEDS ORDERED: Amlodipine 10 MG TAB PO SCH (09:00)
[2022-05-23] MEDS ORDERED: Losartan 25 MG TAB PO SCH (09:00)
[2022-05-23] MEDS ORDERED: Aspirin 325 mg Enteric Coated Tablet PO SCH (09:00)
[2022-05-23] MEDS ORDERED: Non-Formulary Item 1 EACH (Losartan Potassium [Losartan Potassium] 50 MG Tablet) PO SCH (09:00)
[2022-05-23] MEDS ORDERED: Allopurinol 300 MG TAB PO SCH (09:00)
[2022-05-23 12:11] VITALS: BP 126/64; TEMP 97.3
[2022-05-23 13:49] LABS: Anion Gap 13 mmol/L (10-20); BUN (Urea Nitrogen) 16 mg/dL (8.4-25.7); Calc. Creatinine Clearance 73 mL/min (70-130); Calcium 9.2 mg/dL (7.8-10.44); Carbon Dioxide 19 mmol/L (23-31); Chloride 106 mmol/L (98-107); Estimated GFR 75; Glucose 86 mg/dL (80-115); Potassium 4.4 mmol/L (3.5-5.1); Sodium 134 mmol/L (136-145)
[2022-05-23] MEDS ORDERED: Gabapentin 400 MG CAP PO SCH (15:00)
[2022-05-23] MEDS ORDERED: Calcium Carbonate + Vit D 250 MG TAB PO SCH (21:00)
[2022-05-24] MEDS ORDERED: Losartan 25 MG TAB PO SCH (09:00)
[2022-05-24] MEDS ORDERED: Tamsulosin HCl 0.4 MG CAP PO SCH (09:00)
[2022-05-24] MEDS ORDERED: Hydrochlorothiazide 25 MG TAB PO SCH (09:00)
[2022-05-24] MEDS ORDERED: PARoxetine 20 MG TAB PO SCH (09:00)
[2022-05-25] MEDS ORDERED: FLU VACC QS2022-23(65YR UP)/PF 240 MCG/0.7 ML SYRINGE IM ONE (09:00)
== END 2022-05-23 15:43 | disposition home health service (06) ==
LOC: ERS 15:42 → NEURO 19:24
PROVIDERS: ADMIT Internal Medicine; ATTEND Internal Medicine
DX: R53.1 Weakness (principal); E87.1 Hypo-osmolality and hyponatremia; N40.0 Benign prostatic hyperplasia without lower urinary tract symptoms; E78.5 Hyperlipidemia, unspecified; I69.320 Aphasia following cerebral infarction; I10 Essential (primary) hypertension; G93.40 Encephalopathy, unspecified; K21.9 Gastro-esophageal reflux disease without esophagitis; M81.0 Age-related osteoporosis without current pathological fracture; N17.9 Acute kidney failure, unspecified; K59.00 Constipation, unspecified; I31.39 Other pericardial effusion (noninflammatory); K80.20 Calculus of gallbladder without cholecystitis without obstruction; I70.0 Atherosclerosis of aorta; D72.829 Elevated white blood cell count, unspecified; I08.3 Combined rheumatic disorders of mitral, aortic and tricuspid valves; Z87.891 Personal history of nicotine dependence; Z79.82 Long term (current) use of aspirin; Z79.83 Long term (current) use of bisphosphonates; Z79.899 Other long term (current) drug therapy; Z88.0 Allergy status to penicillin; Z88.5 Allergy status to narcotic agent; Z20.822 Contact with and (suspected) exposure to COVID-19
CPT/HCPCS: 70450; 70551; 71045; 74177; 80048 ×2; 80053; 80061; 80306; 80307; 81003; 83690; 84484 ×3; 85025 ×2; 93005; 93306; 93880; 96374; 97116 ×2; 99285; U0002; 36415; G0378; J2405; J7050; Q9967

== ENCOUNTER 2025-01-03 10:07 | Emergency (ER) | payer OTHER ==
[2025-01-03] MEDS ORDERED: Ketorolac Tromethamine 30 MG (1 mL) VIAL ONE (11:24)
[2025-01-03] MEDS ORDERED: Methocarbamol 500 MG TAB ONE (11:25)
== END 2025-01-03 14:42 | disposition home or self-care (01) ==
LOC: ERS 10:07
DX: M48.061 Spinal stenosis, lumbar region without neurogenic claudication (principal); I10 Essential (primary) hypertension; Z86.73 Personal history of transient ischemic attack (TIA), and cerebral infarction without residual deficits; Z87.891 Personal history of nicotine dependence
CPT/HCPCS: 72131; J1885; 96372